=== PATIENT | female | born 1940 | race Two or more races ===

== ENCOUNTER 2020-08-19 15:11 | Emergency (ER) | payer OTHER ==
[~2020-08-19] VITALS: Ht 152.4 cm; Wt 74.4 kg
[2020-08-19] MEDS ORDERED: TOPROL XL25 M1 (15:18)
[2020-08-19] MEDS ORDERED: ATACAND HCT 321 EAC1 (15:18)
[2020-08-19] MEDS ORDERED: VITAMIN C1000 MG (15:19)
[2020-08-19] MEDS ORDERED: FISH OIL 1,0001 EAC1 (15:19)
[2020-08-19] MEDS ORDERED: CALCIUM MAGNES1 EAC1 (15:20)
[2020-08-19] MEDS ORDERED: MECLIZINE HCL12.5 MG PO (19:20)
== END 2020-08-19 21:11 | disposition home or self-care (01) ==
LOC: ER 15:11
DX: G45.8 Other transient cerebral ischemic attacks and related syndromes (principal); R42 Dizziness and giddiness; R51.9 Headache, unspecified; N17.8 Other acute kidney failure